=== PATIENT | male | born 1935 | race Caucasian/White ===

== ENCOUNTER 2021-08-31 10:30 | Inpatient (IN) | payer MEDICARE ==
[2021-08-31 11:56] LABS: Hemoglobin 10.2 g/dL (13.5-17.5); Mean Corpuscular HGB CONC 33.6 g/dL (32.0-36.0); Mean Corpuscular Hemoglobin 29.7 pg (27.0-33.0); Mean Corpuscular Volume 88.6 fl (81.2-95.1); Mean Platelet Volume 11.6 fl (7.4-10.4); Platelet Count 178 10x3/uL (150-450); RBC Distribution Width 14.2 % (11.5-14.5); Red Blood Cell (RBC) Count 3.43 10x6/uL (4.32-5.72); White Blood Cell (WBC) Count 5.3 10x3/uL (3.5-10.5)
[2021-08-31 12:00] LABS: Bilirubin Neg (Negative); Blood, Urine Negative (Negative); Clarity Clear (Clear); Glucose, Urine (Dipstick) Normal (Negative); Ketone, Urine 5 mg/dL (Negative); Leukocyte 25 (Negative); Nitrite Negative (Negative); Protein, Urine (Dipstick) 30 mg/dl (Neg-Trace); Urobilinogen Normal mg/dL (Less than 2)
[2021-08-31 12:18] LABS: Renal Epithelial 0-3 HPF (None Seen); Squamous Epithelial None Seen HPF (0-3); WBC/HPF 0-3 HPF (0-3)
[2021-08-31 12:18] LABS: ALT (SGPT) 190 U/L (8-55); AST (SGOT) 371 U/L (5-34); Albumin 2.5 g/dL (3.4-4.8); Alkaline Phosphatase 126 U/L (40-110); Anion Gap 13 mmol/L (10-20); BUN (Urea Nitrogen) 30 mg/dL (8.4-25.7); Bilirubin, Total 0.3 mg/dL (0.2-1.2); CK (CPK) 32 U/L (30-200); Calc. Creatinine Clearance 0 mL/min (70-130); Calcium 7.9 mg/dL (7.8-10.44); Carbon Dioxide 23 mmol/L (23-31); Chloride 105 mmol/L (98-107); Globulin 2.8 g/dL (2.4-3.5); Glucose 71 mg/dL (83-110); Potassium 4.1 mmol/L (3.5-5.1); Protein, Total 5.3 g/dL (5.8-8.1); Sodium 137 mmol/L (136-145)
[2021-08-31 12:19] LABS: Bacteria/HPF None Seen HPF (None Seen); RBC/HPF 0-3 HPF (0-3)
[2021-08-31 12:35] LABS: CKMB 2.5 ng/mL (0-6.6)
[2021-08-31 12:41] LABS: Band 2 % (5-11); Lymphocytes 5 % (21-51); Monocytes 3 % (0-10)
[2021-08-31 12:44] LABS: Platelet Morphology Comment Appears Adequate
[2021-08-31 12:47] LABS: Diff Comment (RBC Morph SCRN) NORMAL
[2021-08-31] MEDS ORDERED: Enoxaparin Sodium 80 MG/0.8 ML SYRINGE ONE (12:48)
[2021-08-31 12:50] LABS: MDiff Complete? YES
[2021-08-31 13:07] LABS: Neutrophil 90 % (42-75)
[2021-08-31 13:08] LABS: RBC Morphology NORMAL
[2021-08-31 14:43] LABS: Troponin I 0.161 ng/mL (< 0.028)
[2021-08-31] MEDS ORDERED: Senokot S 8.6-50 MG TAB PO PRN (14:45)
[2021-08-31] MEDS ORDERED: Bisacodyl 5 MG TAB PO PRN (14:45)
[2021-08-31] MEDS ORDERED: Acetaminophen 650 MG Suppository PR PRN (14:45)
[2021-08-31] MEDS ORDERED: Ondansetron ODT 4 MG TAB PO PRN (14:45)
[2021-08-31] MEDS ORDERED: Ondansetron PF 4 MG/2 ML Vial IVP PRN (14:45)
[2021-08-31 16:03] LABS: Hep B Surf Ag Non-Reactive S/CO (NonReactive)
[2021-08-31 16:22] LABS: HBSAg Index 0.19 S/CO (0-0.99)
[2021-08-31] MEDS ORDERED: HYDROcodone/Acetaminophen 5/325 mg Tablet ONE (16:31)
[2021-08-31 17:48] LABS: Troponin I 0.184 ng/mL (< 0.028)
[2021-08-31 20:24] LABS: HBCM Index 0.09 S/CO (0-0.79); Hep A IgM AB Non-Reactive (NonReactive); Hep A IgM S/CO 0.18 S/CO (0-0.79); Hep C IgG Ab Non-Reactive (NonReactive); Hep C Index 0.26 S/CO (0-0.79); Hepatitis B Core IgM Abs Non-Reactive (NonReactive)
[2021-08-31 21:33] VITALS: BMI 20.6
[2021-08-31] MEDS: Sodium Chloride 0.9% 1,000 ML IV SCH (21:38)
[2021-09-01] MEDS ORDERED: Enoxaparin Sodium 80 MG/0.8 ML SYRINGE SC SCH ×2 (01:00→09:00)
[2021-09-01] MEDS: HYDROcodone/Acetaminophen 5/325 mg Tablet PO PRN ×4 (02:53→20:34)
[2021-09-01 03:55] LABS: #Monocytes 0.1 10x3/uL (0.0-1.1); #Neutrophils 2.2 10x3/uL (1.5-8.4); %Basophils 0.4 % (0.0-2.0); %Lymphocytes 12.7 % (18.0-47.0); %Monocytes 2.7 % (0.0-10.0); %Neutrophils 83.4 % (40.0-75.0); Hemoglobin 10.5 g/dL (13.5-17.5); Mean Corpuscular HGB CONC 33.8 g/dL (32.0-36.0); Mean Corpuscular Hemoglobin 29.7 pg (27.0-33.0); Mean Corpuscular Volume 87.9 fl (81.2-95.1); Mean Platelet Volume 11.9 fl (7.4-10.4); Platelet Count 146 10x3/uL (150-450); RBC Distribution Width 14.3 % (11.5-14.5); Red Blood Cell (RBC) Count 3.54 10x6/uL (4.32-5.72); White Blood Cell (WBC) Count 2.6 10x3/uL (3.5-10.5)
[2021-09-01 04:12] LABS: Anion Gap 13 mmol/L (10-20); BUN (Urea Nitrogen) 27 mg/dL (8.4-25.7); Calc. Creatinine Clearance 51 mL/min (70-130); Calcium 7.8 mg/dL (7.8-10.44); Carbon Dioxide 21 mmol/L (23-31); Chloride 110 mmol/L (98-107); Glucose 81 mg/dL (83-110); Potassium 3.8 mmol/L (3.5-5.1); Sodium 140 mmol/L (136-145)
[2021-09-01] MEDS: Sodium Chloride 0.9% 1,000 ML IV SCH ×3 (06:46→21:56)
[2021-09-01] MEDS ORDERED: Pramipexole Di-HCl 1 MG TAB PO PRN (08:26)
[2021-09-01 08:53] LABS: ALT (SGPT) 417 U/L (8-55); AST (SGOT) 940 U/L (5-34); Albumin 2.3 g/dL (3.4-4.8); Alkaline Phosphatase 135 U/L (40-110); Bilirubin, Direct 0.3 mg/dL (0.1-0.3); Bilirubin, Total 0.3 mg/dL (0.2-1.2)
[2021-09-01] MEDS ORDERED: Torsemide 20 MG TAB PO SCH (09:00)
[2021-09-01] MEDS: NIFEdipine XL 30 MG TAB PO SCH (09:09)
[2021-09-01] MEDS ORDERED: Enoxaparin Sodium 80 MG/0.8 ML SYRINGE ONE (09:10)
[2021-09-01] MEDS: Loratadine 10 MG TAB PO SCH (09:11)
[2021-09-01] MEDS: Multivit, Therapeutic 1 TAB PO SCH (09:11)
[2021-09-01] MEDS: Aspirin 81 mg Enteric Coated Tablet PO SCH (09:11)
[2021-09-01] MEDS: Potassium Chloride 10 MEQ TAB PO SCH (09:11)
[2021-09-01] MEDS: Cholecalciferol 1,000 UNITS (25 MCG) TAB PO SCH (09:30)
[2021-09-01] MEDS ORDERED: Piperacillin/Tazobactam 3.375 GM in Sodium Chloride 0.9% 100 ML IVPB SCH (10:30)
[2021-09-01] MEDS ORDERED: diphenhydrAMINE 50 MG CAP PO SCH (12:15)
[2021-09-01] MEDS: Aluminum & Magnesium Hydroxide 60 ML, diphenhydrAMINE 150 MG, Lidocaine 2% Viscous Solu... SSW SCH ×3 (12:32→20:48)
[2021-09-01] MEDS: Piperacillin/Tazobactam 3.375 GM in Sodium Chloride 0.9% 100 ML IVPB SCH ×2 (15:18→21:56)
[2021-09-01 16:44] LABS: SARS-CoV-2 PCR by NAA Not Detected (NotDetected)
[2021-09-01] MEDS: Apixaban 5 MG TAB PO SCH (20:31)
[2021-09-01] MEDS: Mirtazapine 15 MG TAB PO SCH (20:31)
[2021-09-01] MEDS: Amiodarone 200 MG TAB PO SCH (20:32)
[2021-09-01] MEDS: predniSONE 50 MG TAB PO SCH (20:41)
[2021-09-01] MEDS ORDERED: Rosuvastatin 10 MG TAB PO SCH (21:00)
[2021-09-02] MEDS: predniSONE 50 MG TAB PO SCH (02:10)
[2021-09-02 05:13] LABS: Mean Corpuscular HGB CONC 33.2 g/dL (32.0-36.0); Mean Corpuscular Hemoglobin 29.7 pg (27.0-33.0); Mean Corpuscular Volume 89.3 fl (81.2-95.1); Mean Platelet Volume 11.8 fl (7.4-10.4); Platelet Count 118 10x3/uL (150-450); RBC Distribution Width 14.6 % (11.5-14.5); Red Blood Cell (RBC) Count 3.37 10x6/uL (4.32-5.72); White Blood Cell (WBC) Count 2.5 10x3/uL (3.5-10.5)
[2021-09-02 05:27] LABS: Manual Diff?? YES
[2021-09-02 05:28] LABS: MDiff Complete? YES
[2021-09-02 05:32] LABS: ALT (SGPT) 747 U/L (8-55); AST (SGOT) 1959 U/L (5-34); Albumin 2.1 g/dL (3.4-4.8); Alkaline Phosphatase 152 U/L (40-110); Anion Gap 17 mmol/L (10-20); BUN (Urea Nitrogen) 33 mg/dL (8.4-25.7); Bilirubin, Total 0.4 mg/dL (0.2-1.2); Calc. Creatinine Clearance 40 mL/min (70-130); Calcium 7.3 mg/dL (7.8-10.44); Carbon Dioxide 22 mmol/L (23-31); Chloride 112 mmol/L (98-107); Globulin 2.6 g/dL (2.4-3.5); Glucose 112 mg/dL (83-110); Lipase 100 U/L (8-78); Potassium 4.2 mmol/L (3.5-5.1); Protein, Total 4.7 g/dL (5.8-8.1); Sodium 147 mmol/L (136-145)
[2021-09-02] MEDS: Piperacillin/Tazobactam 3.375 GM in Sodium Chloride 0.9% 100 ML IVPB SCH ×2 (05:45→15:13)
[2021-09-02] MEDS: Sodium Chloride 0.9% 1,000 ML IV SCH (05:46)
[2021-09-02 06:14] LABS: Band 45 % (5-11); Lymphocytes 4 % (21-51); Metamyelocyte 3 % (0-0); Neutrophil 46 % (42-75); Reactive Lymphocytes 2 % (0-10)
[2021-09-02 06:15] LABS: Platelet Morphology Comment Appears Decreased
[2021-09-02 06:16] LABS: Target Cells SLIGHT = 2-5 cells (100X) (0-1/hpf)
[2021-09-02] MEDS ORDERED: diphenhydrAMINE 50 MG CAP PO SCH (08:00)
[2021-09-02] MEDS: Ferrous Sulfate 325 MG TAB PO SCH (09:14)
[2021-09-02] MEDS: Multivit, Therapeutic 1 TAB PO SCH (09:14)
[2021-09-02] MEDS: Cholecalciferol 1,000 UNITS (25 MCG) TAB PO SCH (09:14)
[2021-09-02] MEDS: Pantoprazole 40 MG VIAL IVP SCH (09:15)
[2021-09-02] MEDS: Potassium Chloride 10 MEQ TAB PO SCH (09:15)
[2021-09-02] MEDS: Aluminum & Magnesium Hydroxide 60 ML, diphenhydrAMINE 150 MG, Lidocaine 2% Viscous Solu... SSW SCH ×4 (09:15→21:31)
[2021-09-02] MEDS: Loratadine 10 MG TAB PO SCH (09:15)
[2021-09-02] MEDS: Aspirin 81 mg Enteric Coated Tablet PO SCH (09:15)
[2021-09-02] MEDS: Apixaban 5 MG TAB PO SCH (09:15)
[2021-09-02] MEDS: Amiodarone 200 MG TAB PO SCH (09:35)
[2021-09-02] MEDS: NIFEdipine XL 30 MG TAB PO SCH (09:35)
[2021-09-02] MEDS: Dextrose 5%-Lactated Ringers 1,000 ML IV SCH ×2 (12:34→21:30)
[2021-09-02] MEDS: Nystatin 500,000 UNITS/5 ML UDCUP SSW SCH ×3 (15:13→21:30)
[2021-09-02] MEDS: Mirtazapine 15 MG TAB PO SCH (21:30)
[2021-09-02] MEDS: Enoxaparin Sodium 60 MG/0.6 ML SYRINGE SC SCH (21:30)
[2021-09-02] MEDS: HYDROcodone/Acetaminophen 5/325 mg Tablet PO PRN (21:41)
[2021-09-03] MEDS: Piperacillin/Tazobactam 3.375 GM in Sodium Chloride 0.9% 100 ML IVPB SCH ×3 (00:17→16:01)
[2021-09-03 05:59] LABS: ALT (SGPT) 1138 U/L (8-55); AST (SGOT) 3229 U/L (5-34); Albumin 2.3 g/dL (3.4-4.8); Alkaline Phosphatase 219 U/L (40-110); Anion Gap 15 mmol/L (10-20); BUN (Urea Nitrogen) 36 mg/dL (8.4-25.7); Bilirubin, Total 0.4 mg/dL (0.2-1.2); CRP (Inflammatory) 10.23 mg/dL (= or < 0.5); Calc. Creatinine Clearance 45 mL/min (70-130); Calcium 7.7 mg/dL (7.8-10.44); Carbon Dioxide 22 mmol/L (23-31); Chloride 116 mmol/L (98-107); Globulin 2.7 g/dL (2.4-3.5); Glucose 119 mg/dL (83-110); Magnesium 2.2 mg/dL (1.6-2.6); Phosphorus 3.6 mg/dL (2.3-4.7); Potassium 4.2 mmol/L (3.5-5.1); Sodium 149 mmol/L (136-145)
[2021-09-03 07:02] LABS: Hemoglobin 12.5 g/dL (13.5-17.5); Mean Corpuscular HGB CONC 34.2 g/dL (32.0-36.0); Mean Corpuscular Hemoglobin 29.4 pg (27.0-33.0); Mean Corpuscular Volume 85.9 fl (81.2-95.1); Mean Platelet Volume 12.6 fl (7.4-10.4); RBC Distribution Width 14.6 % (11.5-14.5); Red Blood Cell (RBC) Count 4.25 10x6/uL (4.32-5.72); White Blood Cell (WBC) Count 4.3 10x3/uL (3.5-10.5)
[2021-09-03 07:03] LABS: MDiff Complete? YES; Platelet Count 116 10x3/uL (150-450)
[2021-09-03] MEDS: Aluminum & Magnesium Hydroxide 60 ML, diphenhydrAMINE 150 MG, Lidocaine 2% Viscous Solu... SSW SCH ×4 (07:14→20:16)
[2021-09-03 07:33] LABS: Band 8 % (5-11); Lymphocytes 7 % (21-51); Monocytes 3 % (0-10); Neutrophil 81 % (42-75); Platelet Morphology Comment Appears Decreased; Reactive Lymphocytes 1 % (0-10)
[2021-09-03] MEDS: Pantoprazole 40 MG VIAL IVP SCH (10:21)
[2021-09-03] MEDS: Ferrous Sulfate 325 MG TAB PO SCH (10:21)
[2021-09-03] MEDS: Cholecalciferol 1,000 UNITS (25 MCG) TAB PO SCH (10:21)
[2021-09-03] MEDS: Enoxaparin Sodium 60 MG/0.6 ML SYRINGE SC SCH (10:21)
[2021-09-03] MEDS: Multivit, Therapeutic 1 TAB PO SCH (10:21)
[2021-09-03] MEDS: Nystatin 500,000 UNITS/5 ML UDCUP SSW SCH ×4 (10:21→20:13)
[2021-09-03] MEDS: Potassium Chloride 10 MEQ TAB PO SCH (10:21)
[2021-09-03] MEDS: Loratadine 10 MG TAB PO SCH (10:22)
[2021-09-03] MEDS: Aspirin 81 mg Enteric Coated Tablet PO SCH (10:22)
[2021-09-03] MEDS: Albumin 25% 25 GM/100 ML BOT IVPB SCH ×3 (12:24→22:58)
[2021-09-03] MEDS: D5W-AA 4.25% with LYTES 1,000 ML IV SCH (14:32)
[2021-09-03] MEDS: Dextrose 5%-Lactated Ringers 1,000 ML IV SCH (15:10)
[2021-09-03] MEDS: HYDROcodone/Acetaminophen 5/325 mg Tablet PO PRN (18:37)
[2021-09-03] MEDS ORDERED: predniSONE 50 MG TAB PO SCH (20:00)
[2021-09-03] MEDS: Melatonin 3 MG TAB PO SCH (20:14)
[2021-09-03] MEDS: Mirtazapine 15 MG TAB PO SCH (20:14)
[2021-09-03] MEDS: SODIUM CHLORIDE IVPB SCH (20:14)
[2021-09-03] MEDS: ACYCLOVIR SODIUM IVPB SCH (20:14)
[2021-09-03] MEDS: Enoxaparin Sodium 80 MG/0.8 ML SYRINGE SC SCH (20:14)
[2021-09-03] MEDS: ADMIXTURE FEE IVPB SCH (20:14)
[2021-09-04] MEDS: Piperacillin/Tazobactam 3.375 GM in Sodium Chloride 0.9% 100 ML IVPB SCH ×3 (00:03→12:15)
[2021-09-04] MEDS: HYDROcodone/Acetaminophen 5/325 mg Tablet PO PRN ×5 (00:45→23:32)
[2021-09-04] MEDS: D5W-AA 4.25% with LYTES 1,000 ML IV SCH ×2 (01:54→15:40)
[2021-09-04] MEDS ORDERED: predniSONE 50 MG TAB PO SCH ×2 (02:00→08:00)
[2021-09-04] MEDS: Albumin 25% 25 GM/100 ML BOT IVPB SCH (04:58)
[2021-09-04 05:03] LABS: Mean Corpuscular HGB CONC 33.4 g/dL (32.0-36.0); Mean Corpuscular Hemoglobin 29.1 pg (27.0-33.0); Mean Corpuscular Volume 87.1 fl (81.2-95.1); Platelet Count 78 10x3/uL (150-450); RBC Distribution Width 14.5 % (11.5-14.5); Red Blood Cell (RBC) Count 4.12 10x6/uL (4.32-5.72); White Blood Cell (WBC) Count 3.1 10x3/uL (3.5-10.5)
[2021-09-04 05:17] LABS: ALT (SGPT) 1080 U/L (8-55); AST (SGOT) 3240 U/L (5-34); Albumin 3.1 g/dL (3.4-4.8); Alkaline Phosphatase 210 U/L (40-110); Anion Gap 15 mmol/L (10-20); BUN (Urea Nitrogen) 35 mg/dL (8.4-25.7); Bilirubin, Total 0.5 mg/dL (0.2-1.2); Calc. Creatinine Clearance 49 mL/min (70-130); Calcium 8.1 mg/dL (7.8-10.44); Carbon Dioxide 21 mmol/L (23-31); Chloride 113 mmol/L (98-107); Globulin 2.5 g/dL (2.4-3.5); Glucose 150 mg/dL (83-110); Potassium 4.4 mmol/L (3.5-5.1); Protein, Total 5.6 g/dL (5.8-8.1); Sodium 145 mmol/L (136-145)
[2021-09-04 05:20] LABS: INR-International Normal Ratio 1.5
[2021-09-04 05:51] LABS: MDiff Complete? YES
[2021-09-04 05:57] LABS: Anisocytosis SLIGHT = 6-15 cells (100X) (0-5/hpf)
[2021-09-04 05:58] LABS: Platelet Morphology Comment Appears Decreased; Target Cells SLIGHT = 2-5 cells (100X) (0-1/hpf)
[2021-09-04 06:00] LABS: Band 11 % (5-11); Lymphocytes 11 % (21-51); Metamyelocyte 2 % (0-0); Monocytes 2 % (0-10); Neutrophil 69 % (42-75); Nucleated RBC 2 % (0); Reactive Lymphocytes 5 % (0-10)
[2021-09-04] MEDS: Aluminum & Magnesium Hydroxide 60 ML, diphenhydrAMINE 150 MG, Lidocaine 2% Viscous Solu... SSW SCH ×4 (07:12→20:26)
[2021-09-04] MEDS ORDERED: diphenhydrAMINE 50 MG CAP PO SCH (08:00)
[2021-09-04] MEDS: Loratadine 10 MG TAB PO SCH (08:19)
[2021-09-04] MEDS: Potassium Chloride 10 MEQ TAB PO SCH (08:20)
[2021-09-04] MEDS: Aspirin 81 mg Enteric Coated Tablet PO SCH (08:23)
[2021-09-04] MEDS: Ferrous Sulfate 325 MG TAB PO SCH (08:23)
[2021-09-04] MEDS: Multivit, Therapeutic 1 TAB PO SCH (08:24)
[2021-09-04] MEDS: Cholecalciferol 1,000 UNITS (25 MCG) TAB PO SCH (08:24)
[2021-09-04] MEDS: Nystatin 500,000 UNITS/5 ML UDCUP SSW SCH ×4 (08:25→20:29)
[2021-09-04] MEDS: Enoxaparin Sodium 80 MG/0.8 ML SYRINGE SC SCH ×2 (08:26→20:25)
[2021-09-04] MEDS: Pantoprazole 40 MG VIAL IVP SCH (08:26)
[2021-09-04] MEDS: SODIUM CHLORIDE IVPB SCH ×2 (08:29→19:56)
[2021-09-04] MEDS: ADMIXTURE FEE IVPB SCH ×2 (08:29→19:56)
[2021-09-04] MEDS: ACYCLOVIR SODIUM IVPB SCH ×2 (08:29→19:56)
[2021-09-04] MEDS ORDERED: NIFEdipine XL 90 MG TAB PO SCH (11:00)
[2021-09-04] MEDS ORDERED: NIFEdipine XL 30 MG TAB PO SCH (11:45)
[2021-09-04] MEDS: Acetaminophen 325 MG TAB PO PRN ×3 (12:15→19:55)
[2021-09-04] MEDS ORDERED: Iopamidol 300 61% 100 ML VIAL FS ONE (14:52)
[2021-09-04] MEDS: Mirtazapine 15 MG TAB PO SCH (20:25)
[2021-09-04] MEDS: Melatonin 3 MG TAB PO SCH (20:25)
[2021-09-05] MEDS: Acetaminophen 325 MG TAB PO PRN (02:52)
[2021-09-05] MEDS: HYDROcodone/Acetaminophen 5/325 mg Tablet PO PRN ×3 (03:52→13:07)
[2021-09-05] MEDS: D5W-AA 4.25% with LYTES 1,000 ML IV SCH ×2 (03:59→18:20)
[2021-09-05 04:36] LABS: Hemoglobin 11.1 g/dL (13.5-17.5); Mean Corpuscular HGB CONC 34.2 g/dL (32.0-36.0); Mean Corpuscular Hemoglobin 29.5 pg (27.0-33.0); Mean Corpuscular Volume 86.4 fl (81.2-95.1); Mean Platelet Volume 13.4 fl (7.4-10.4); Platelet Count 65 10x3/uL (150-450); RBC Distribution Width 14.6 % (11.5-14.5); Red Blood Cell (RBC) Count 3.76 10x6/uL (4.32-5.72); White Blood Cell (WBC) Count 5.1 10x3/uL (3.5-10.5)
[2021-09-05 04:40] LABS: ALT (SGPT) 869 U/L (8-55); AST (SGOT) 2476 U/L (5-34); Albumin 2.7 g/dL (3.4-4.8); Alkaline Phosphatase 226 U/L (40-110); Anion Gap 15 mmol/L (10-20); BUN (Urea Nitrogen) 53 mg/dL (8.4-25.7); Bilirubin, Total 0.5 mg/dL (0.2-1.2); Calc. Creatinine Clearance 41 mL/min (70-130); Calcium 7.8 mg/dL (7.8-10.44); Carbon Dioxide 20 mmol/L (23-31); Chloride 112 mmol/L (98-107); Globulin 2.1 g/dL (2.4-3.5); Glucose 157 mg/dL (83-110); Potassium 4.7 mmol/L (3.5-5.1); Protein, Total 4.8 g/dL (5.8-8.1); Sodium 142 mmol/L (136-145)
[2021-09-05 04:42] LABS: INR-International Normal Ratio 1.4; Prothrombin Time 14.6 sec (9.5-12.1)
[2021-09-05 06:18] LABS: MDiff Complete? YES
[2021-09-05 06:43] LABS: Anisocytosis SLIGHT = 6-15 cells (100X) (0-5/hpf); Platelet Morphology Comment Appears Decreased
[2021-09-05 06:44] LABS: Band 15 % (5-11); Lymphocytes 13 % (21-51); Metamyelocyte 1 % (0-0); Monocytes 2 % (0-10); Neutrophil 63 % (42-75); Reactive Lymphocytes 6 % (0-10)
[2021-09-05] MEDS ORDERED: diphenhydrAMINE 12.5 MG/5 ML UDCUP ONE ×2 (07:52→18:22)
[2021-09-05] MEDS ORDERED: Nystatin 500,000 UNITS/5 ML UDCUP ONE ×2 (07:52→18:22)
[2021-09-05] MEDS: Cholecalciferol 1,000 UNITS (25 MCG) TAB PO SCH (08:25)
[2021-09-05] MEDS: Aspirin 81 mg Enteric Coated Tablet PO SCH (08:25)
[2021-09-05] MEDS: Enoxaparin Sodium 80 MG/0.8 ML SYRINGE SC SCH (08:25)
[2021-09-05] MEDS: Loratadine 10 MG TAB PO SCH (08:26)
[2021-09-05] MEDS: Ferrous Sulfate 325 MG TAB PO SCH (08:26)
[2021-09-05] MEDS: Potassium Chloride 10 MEQ TAB PO SCH (08:26)
[2021-09-05] MEDS: Pantoprazole 40 MG VIAL IVP SCH (08:27)
[2021-09-05] MEDS: Multivit, Therapeutic 1 TAB PO SCH (08:27)
[2021-09-05] MEDS: Aluminum & Magnesium Hydroxide 60 ML, diphenhydrAMINE 150 MG, Lidocaine 2% Viscous Solu... SSW SCH ×3 (08:52→18:31)
[2021-09-05] MEDS ORDERED: NIFEdipine XL 90 MG TAB PO SCH (09:00)
[2021-09-05] MEDS: Nystatin 500,000 UNITS/5 ML UDCUP SSW SCH ×4 (09:00→21:00)
[2021-09-05] MEDS: SODIUM CHLORIDE IVPB SCH ×2 (10:22→22:34)
[2021-09-05] MEDS: ACYCLOVIR SODIUM IVPB SCH ×2 (10:22→22:34)
[2021-09-05] MEDS: ADMIXTURE FEE IVPB SCH ×2 (10:22→22:34)
[2021-09-05 19:55] LABS: Bilirubin Neg (Negative); Blood, Urine 50 (Negative); Clarity Clear (Clear); Glucose, Urine (Dipstick) Normal (Negative); Ketone, Urine Negative (Negative); Leukocyte 100 (Negative); Nitrite Negative (Negative); Protein, Urine (Dipstick) 100 mg/dl (Neg-Trace); Specific Gravity, Urine 1.015 (1.002-1.036); Urobilinogen Normal mg/dL (Less than 2)
[2021-09-05 20:18] LABS: Bacteria/HPF Rare-Few HPF (None Seen); RBC/HPF 0-3 HPF (0-3); Squamous Epithelial 0-3 HPF (0-3); Urine Culture Reflex No No; WBC/HPF 0-3 HPF (0-3); Yeast-Budding 3+ HPF (None Seen); Yeast-Hyphae 2+ HPF (None Seen)
[2021-09-05] MEDS ORDERED: Ampicillin 2 GM in Sodium Chloride 0.9% 100 ML IVPB SCH ×2 (21:00→23:59)
[2021-09-05] MEDS ORDERED: cefTRIAXone\\ROCEPHIN 2 GM in Sodium Chloride 0.9% 100 ML IVPB SCH ×2 (21:00→22:00)
[2021-09-05] MEDS ORDERED: Dexamethasone 20 MG/5 ML VIAL SLOW IVP SCH (21:15)
[2021-09-05 21:53] LABS: Hemoglobin 10.9 g/dL (13.5-17.5); Mean Corpuscular HGB CONC 33.6 g/dL (32.0-36.0); Mean Corpuscular Hemoglobin 28.9 pg (27.0-33.0); Mean Corpuscular Volume 85.9 fl (81.2-95.1); Platelet Count 74 10x3/uL (150-450); RBC Distribution Width 14.6 % (11.5-14.5); Red Blood Cell (RBC) Count 3.77 10x6/uL (4.32-5.72); White Blood Cell (WBC) Count 5.7 10x3/uL (3.5-10.5)
[2021-09-05 21:55] LABS: MDiff Complete? YES
[2021-09-05 22:04] LABS: ALT (SGPT) 732 U/L (8-55); AST (SGOT) 1742 U/L (5-34); Albumin 2.8 g/dL (3.4-4.8); Alkaline Phosphatase 248 U/L (40-110); Anion Gap 16 mmol/L (10-20); BUN (Urea Nitrogen) 69 mg/dL (8.4-25.7); Bilirubin, Total 0.6 mg/dL (0.2-1.2); Calc. Creatinine Clearance 31 mL/min (70-130); Calcium 8.1 mg/dL (7.8-10.44); Carbon Dioxide 20 mmol/L (23-31); Chloride 110 mmol/L (98-107); Globulin 2.3 g/dL (2.4-3.5); Glucose 119 mg/dL (83-110); Protein, Total 5.1 g/dL (5.8-8.1); Sodium 141 mmol/L (136-145)
[2021-09-05 22:13] LABS: Platelet Morphology Comment Appears Decreased
[2021-09-05 22:14] LABS: Anisocytosis SLIGHT = 6-15 cells (100X) (0-5/hpf)
[2021-09-05 22:16] LABS: Band 6 % (5-11); Lymphocytes 10 % (21-51); Metamyelocyte 1 % (0-0); Monocytes 2 % (0-10); Neutrophil 79 % (42-75); Reactive Lymphocytes 2 % (0-10)
[2021-09-05 22:24] LABS: Actual Bicarbonate (HCO3v) 21 mEq/L (22-28); Base Excess -3.2 mEq/L (-2.0 to +3.0); Calcium, Ionized (venous) 1.09 mmol/L (1.16-1.32); Chloride (VBG) 110 mmol/L (98-106); Hemoglobin (Hb) 11.4 g/dL (12.6-17.4); Potassium (VBG) 4.79 mmol/L (3.70-5.30); Puncture Site Other Site; RapidComm Collect By LAB.YY; Sodium 137.9 mmol/L (133-146); pH (venous) 7.42 (7.32-7.43)
[2021-09-05] MEDS ORDERED: Vancomycin HCl 1 GM in Sodium Chloride 0.9% 250 ML 250 ML IVPB SCH (23:00)
[2021-09-06 00:32] LABS: Lactic Acid 2.1 mmol/L (0.5-2.2)
[2021-09-06] MEDS: Dextrose 5 %-0.45 % NaCl 1,000 ML IV SCH ×2 (00:41→12:28)
[2021-09-06] MEDS: Melatonin 3 MG TAB PO SCH (01:31)
[2021-09-06] MEDS: Mirtazapine 15 MG TAB PO SCH (01:31)
[2021-09-06] MEDS: Aluminum & Magnesium Hydroxide 60 ML, diphenhydrAMINE 150 MG, Lidocaine 2% Viscous Solu... SSW SCH ×5 (01:32→20:57)
[2021-09-06] MEDS ORDERED: Ampicillin 2 GM in Sodium Chloride 0.9% 100 ML IVPB SCH (03:00)
[2021-09-06 04:27] LABS: INR-International Normal Ratio 1.3; Prothrombin Time 13.5 sec (9.5-12.1)
[2021-09-06 04:37] LABS: ALT (SGPT) 633 U/L (8-55); AST (SGOT) 1385 U/L (5-34); Albumin 2.6 g/dL (3.4-4.8); Alkaline Phosphatase 258 U/L (40-110); Anion Gap 16 mmol/L (10-20); BUN (Urea Nitrogen) 66 mg/dL (8.4-25.7); Bilirubin, Total 0.6 mg/dL (0.2-1.2); Calc. Creatinine Clearance 32 mL/min (70-130); Calcium 7.8 mg/dL (7.8-10.44); Carbon Dioxide 20 mmol/L (23-31); Chloride 111 mmol/L (98-107); Globulin 2.6 g/dL (2.4-3.5); Glucose 116 mg/dL (83-110); Potassium 4.5 mmol/L (3.5-5.1); Protein, Total 5.2 g/dL (5.8-8.1); Sodium 142 mmol/L (136-145)
[2021-09-06 04:45] LABS: Mean Corpuscular HGB CONC 34.5 g/dL (32.0-36.0); Mean Corpuscular Volume 84.2 fl (81.2-95.1); Mean Platelet Volume 12.6 fl (7.4-10.4); Platelet Count 70 10x3/uL (150-450); RBC Distribution Width 14.6 % (11.5-14.5); Red Blood Cell (RBC) Count 3.79 10x6/uL (4.32-5.72); White Blood Cell (WBC) Count 5.7 10x3/uL (3.5-10.5)
[2021-09-06 04:49] LABS: Syphilis Antibody Nonreactive (Nonreactive)
[2021-09-06 07:09] LABS: MDiff Complete? YES
[2021-09-06 07:14] LABS: Band 5 % (5-11); Lymphocytes 10 % (21-51); Monocytes 3 % (0-10); Neutrophil 82 % (42-75)
[2021-09-06 07:17] LABS: Anisocytosis SLIGHT = 6-15 cells (100X) (0-5/hpf); Platelet Morphology Comment Appears Decreased; Toxic Granulation SLIGHT
[2021-09-06] MEDS ORDERED: Vancomycin HCl 500 MG in Sodium Chloride 0.9% 100 ML IVPB SCH (08:00)
[2021-09-06] MEDS ORDERED: Vancomycin HCl 1 GM in Sodium Chloride 0.9% 250 ML 250 ML IVPB SCH ×2 (08:00→21:00)
[2021-09-06] MEDS: SODIUM CHLORIDE IVPB SCH (08:49)
[2021-09-06] MEDS: ACYCLOVIR SODIUM IVPB SCH (08:49)
[2021-09-06] MEDS: ADMIXTURE FEE IVPB SCH (08:49)
[2021-09-06] MEDS: Ampicillin 2 GM in Sodium Chloride 0.9% 100 ML IVPB SCH ×2 (08:50→14:02)
[2021-09-06] MEDS: Albumin 25% 25 GM/100 ML BOT IVPB SCH ×3 (08:50→21:05)
[2021-09-06] MEDS: Multivit, Therapeutic 1 TAB PO SCH (08:51)
[2021-09-06] MEDS: Cholecalciferol 1,000 UNITS (25 MCG) TAB PO SCH (08:51)
[2021-09-06] MEDS: Ferrous Sulfate 325 MG TAB PO SCH (08:51)
[2021-09-06] MEDS: Aspirin 81 mg Enteric Coated Tablet PO SCH (08:51)
[2021-09-06] MEDS: Nystatin 500,000 UNITS/5 ML UDCUP SSW SCH ×4 (09:09→20:56)
[2021-09-06] MEDS: Pantoprazole 40 MG VIAL IVP SCH (09:14)
[2021-09-06] MEDS ORDERED: HYDROcodone/Acetaminophen 7.5/325 mg Tablet PO PRN (18:30)
[2021-09-06] MEDS: HYDROmorphone 0.5 MG/0.5 ML SYRINGE SLOW IVP PRN ×2 (18:56→22:58)
[2021-09-06] MEDS ORDERED: cefTRIAXone\\ROCEPHIN 2 GM in Sodium Chloride 0.9% 100 ML IVPB SCH (22:00)
[2021-09-07] MEDS: Dextrose 5 %-0.45 % NaCl 1,000 ML IV SCH ×2 (02:35→07:51)
[2021-09-07 04:46] LABS: ALT (SGPT) 398 U/L (8-55); AST (SGOT) 741 U/L (5-34); Albumin 3.1 g/dL (3.4-4.8); Alkaline Phosphatase 269 U/L (40-110); Anion Gap 17 mmol/L (10-20); BUN (Urea Nitrogen) 56 mg/dL (8.4-25.7); Bilirubin, Total 0.8 mg/dL (0.2-1.2); Calc. Creatinine Clearance 34 mL/min (70-130); Calcium 8.1 mg/dL (7.8-10.44); Carbon Dioxide 19 mmol/L (23-31); Chloride 115 mmol/L (98-107); Glucose 96 mg/dL (83-110); Potassium 4.5 mmol/L (3.5-5.1); Protein, Total 5.1 g/dL (5.8-8.1); Sodium 146 mmol/L (136-145)
[2021-09-07 05:02] LABS: HIV (1/2) Antibody/Antigen Non-Reactive (NonReactive); HIV 1/2 INDEX 0.15 S/CO (<1.00)
[2021-09-07 05:05] LABS: Hemoglobin 7.4 g/dL (13.5-17.5); Mean Corpuscular HGB CONC 33.8 g/dL (32.0-36.0); Mean Corpuscular Hemoglobin 29.7 pg (27.0-33.0); Mean Platelet Volume 14.1 fl (7.4-10.4); RBC Distribution Width 14.9 % (11.5-14.5); Red Blood Cell (RBC) Count 2.49 10x6/uL (4.32-5.72); White Blood Cell (WBC) Count 5.5 10x3/uL (3.5-10.5)
[2021-09-07 05:08] LABS: Platelet Count 93 10x3/uL (150-450)
[2021-09-07 05:33] LABS: MDiff Complete? YES
[2021-09-07] MEDS: HYDROmorphone 0.5 MG/0.5 ML SYRINGE SLOW IVP PRN ×5 (05:40→21:44)
[2021-09-07 05:45] LABS: Band 2 % (5-11); Eosinophils 1 % (0-10); Lymphocytes 12 % (21-51); Metamyelocyte 1 % (0-0); Monocytes 2 % (0-10); Neutrophil 81 % (42-75); Nucleated RBC 2 % (0); Reactive Lymphocytes 1 % (0-10)
[2021-09-07 05:46] LABS: Platelet Morphology Comment Appears Decreased; Polychromasia SLIGHT = 2-3 cells (100X) (0-2/hpf); Vacuoles SLIGHT
[2021-09-07 06:47] LABS: Hemoglobin 6.9 g/dL (13.5-17.5); Mean Corpuscular HGB CONC 33.8 g/dL (32.0-36.0); Mean Corpuscular Hemoglobin 29.4 pg (27.0-33.0); Mean Corpuscular Volume 86.8 fl (81.2-95.1); Mean Platelet Volume 14.5 fl (7.4-10.4); RBC Distribution Width 14.9 % (11.5-14.5); Red Blood Cell (RBC) Count 2.35 10x6/uL (4.32-5.72); White Blood Cell (WBC) Count 6.2 10x3/uL (3.5-10.5)
[2021-09-07 06:48] LABS: Platelet Count 98 10x3/uL (150-450)
[2021-09-07 06:58] LABS: MDiff Complete? YES
[2021-09-07 07:10] LABS: Band 5 % (5-11); Lymphocytes 14 % (21-51); Monocytes 4 % (0-10); Myelocyte 1 % (0-0); Neutrophil 75 % (42-75); Nucleated RBC 4 % (0); Reactive Lymphocytes 1 % (0-10)
[2021-09-07 07:11] LABS: Platelet Morphology Comment Appears Decreased; RBC Morphology Normal
[2021-09-07] MEDS: Pantoprazole 40 MG VIAL IVP SCH ×2 (07:50→21:43)
[2021-09-07] MEDS: Aluminum & Magnesium Hydroxide 60 ML, diphenhydrAMINE 150 MG, Lidocaine 2% Viscous Solu... SSW SCH ×4 (08:13→21:14)
[2021-09-07] MEDS: Ferrous Sulfate 325 MG TAB PO SCH (08:14)
[2021-09-07] MEDS: Multivit, Therapeutic 1 TAB PO SCH (08:14)
[2021-09-07] MEDS: Cholecalciferol 1,000 UNITS (25 MCG) TAB PO SCH (08:14)
[2021-09-07] MEDS: Nystatin 500,000 UNITS/5 ML UDCUP SSW SCH ×4 (08:14→21:14)
[2021-09-07] MEDS ORDERED: Dextrose 50% Abboject 50 ML SYRINGE ONE (09:10)
[2021-09-07] MEDS ORDERED: Dextrose 5% in Water 1,000 ML IV PRN (09:12)
[2021-09-07] MEDS ORDERED: Dextrose 50% Abboject 50 ML SYRINGE SLOW IVP PRN (09:12)
[2021-09-07] MEDS ORDERED: Dextrose 10% in Water 1,000 ML IV SCH (09:15)
[2021-09-07] MEDS: Dextrose 10% in Water 1,000 ML IV SCH ×2 (12:19→22:05)
[2021-09-07 13:17] LABS: Hemoglobin 7.7 g/dL (13.5-17.5); Platelet Count 65 10x3/uL (150-450)
[2021-09-07 13:23] LABS: INR-International Normal Ratio 1.6; PTT 49.4 sec (22.0-33.0); Prothrombin Time 16.6 sec (9.5-12.1)
[2021-09-07] MEDS: Cefepime 1 GM in Sodium Chloride 0.9% 100 ML IVPB SCH (13:26)
[2021-09-07] MEDS: Acyclovir Sodium 750 MG in Sodium Chloride 0.9% 100 ML IVPB SCH (13:49)
[2021-09-07 16:37] LABS: Hemoglobin 7.3 g/dL (13.5-17.5)
[2021-09-07 20:56] LABS: Bilirubin Neg (Negative); Blood, Urine 250 (Negative); Clarity Clear (Clear); Glucose, Urine (Dipstick) Normal (Negative); Ketone, Urine Negative (Negative); Leukocyte 100 (Negative); Nitrite Negative (Negative); Protein, Urine (Dipstick) 100 mg/dl (Neg-Trace); Specific Gravity, Urine 1.015 (1.002-1.036); Urobilinogen Normal mg/dL (Less than 2)
[2021-09-07 21:04] LABS: Squamous Epithelial 0-3 HPF (0-3)
[2021-09-07 21:05] LABS: Bacteria/HPF 2+ HPF (None Seen); Mucous/LPF 1+ LPF (<2+); Transitional Epithelial 0-3 HPF (None Seen); Yeast-Budding 1+ HPF (None Seen); Yeast-Hyphae 2+ HPF (None Seen)
[2021-09-08 00:37] LABS: HSV-2 IgG Type Specific Less than 0.91 index (0.00-0.90)
[2021-09-08 01:07] LABS: Hemoglobin 7.9 g/dL (13.5-17.5); Platelet Count 185 10x3/uL (150-450)
[2021-09-08] MEDS: Cefepime 1 GM in Sodium Chloride 0.9% 100 ML IVPB SCH ×2 (01:11→12:34)
[2021-09-08] MEDS: Acyclovir Sodium 750 MG in Sodium Chloride 0.9% 100 ML IVPB SCH ×2 (02:14→14:16)
[2021-09-08 04:34] LABS: Hemoglobin 7.2 g/dL (13.5-17.5); Mean Corpuscular HGB CONC 35.3 g/dL (32.0-36.0); Mean Corpuscular Hemoglobin 29.3 pg (27.0-33.0); Mean Corpuscular Volume 82.9 fl (81.2-95.1); Mean Platelet Volume 12.3 fl (7.4-10.4); Platelet Count 157 10x3/uL (150-450); RBC Distribution Width 15.9 % (11.5-14.5); Red Blood Cell (RBC) Count 2.46 10x6/uL (4.32-5.72); White Blood Cell (WBC) Count 7.2 10x3/uL (3.5-10.5)
[2021-09-08 04:39] LABS: Anion Gap 16 mmol/L (10-20); BUN (Urea Nitrogen) 59 mg/dL (8.4-25.7); Calc. Creatinine Clearance 32 mL/min (70-130); Calcium 7.5 mg/dL (7.8-10.44); Carbon Dioxide 18 mmol/L (23-31); Chloride 115 mmol/L (98-107); Glucose 134 mg/dL (83-110); Magnesium 2.5 mg/dL (1.6-2.6); Potassium 3.9 mmol/L (3.5-5.1); Sodium 145 mmol/L (136-145)
[2021-09-08 04:51] LABS: MDiff Complete? YES
[2021-09-08 04:55] LABS: Band 3 % (5-11); Lymphocytes 7 % (21-51); Monocytes 2 % (0-10); Neutrophil 88 % (42-75); Nucleated RBC 7 % (0)
[2021-09-08 04:56] LABS: Platelet Morphology Comment Appears Adequate; Polychromasia SLIGHT = 2-3 cells (100X) (0-2/hpf)
[2021-09-08 04:58] LABS: Reflex for Review?? YES
[2021-09-08] MEDS ORDERED: Phytonadione 10 MG in Sodium Chloride 0.9% 50 ML SLOW IVP SCH (08:00)
[2021-09-08] MEDS ORDERED: Tranexamic Acid 1,000 MG/10 ML VIAL IVP SCH (08:00)
[2021-09-08] MEDS ORDERED: Tranexamic Acid 1,000 MG in Sodium Chloride 0.9% 250 ML 250 ML IVPB SCH ×3 (08:00)
[2021-09-08] MEDS ORDERED: Phytonadione 10 MG in Sodium Chloride 0.9% 50 ML IVPB SCH (08:00)
[2021-09-08] MEDS ORDERED: Tranexamic Acid 1,000 MG in Sodium Chloride 0.9% 250 ML 250 ML IVP SCH (08:00)
[2021-09-08] MEDS: Pantoprazole 40 MG VIAL IVP SCH ×2 (08:10→22:04)
[2021-09-08] MEDS: Aluminum & Magnesium Hydroxide 60 ML, diphenhydrAMINE 150 MG, Lidocaine 2% Viscous Solu... SSW SCH ×4 (08:10→22:30)
[2021-09-08] MEDS: Ferrous Sulfate 325 MG TAB PO SCH (08:10)
[2021-09-08] MEDS ORDERED: Phytonadione 10 MG/ML AMP SLOW IVP SCH (08:15)
[2021-09-08] MEDS: Dextrose 10% in Water 1,000 ML IV SCH ×2 (08:34→19:33)
[2021-09-08] MEDS: HYDROmorphone 0.5 MG/0.5 ML SYRINGE SLOW IVP PRN ×4 (08:35→22:00)
[2021-09-08] MEDS: Nystatin 500,000 UNITS/5 ML UDCUP SSW SCH ×4 (08:42→22:30)
[2021-09-08] MEDS: Multivit, Therapeutic 1 TAB PO SCH (08:42)
[2021-09-08] MEDS: Cholecalciferol 1,000 UNITS (25 MCG) TAB PO SCH (08:42)
[2021-09-08 08:43] LABS: ALT (SGPT) 328 U/L (8-55); AST (SGOT) 636 U/L (5-34); Albumin 2.6 g/dL (3.4-4.8); Alkaline Phosphatase 201 U/L (40-110); Bilirubin, Direct 0.6 mg/dL (0.1-0.3); Bilirubin, Total 0.9 mg/dL (0.2-1.2); Protein, Total 4.4 g/dL (5.8-8.1)
[2021-09-08] MEDS ORDERED: Hydrocortisone Sod Succ/PF 250 mg/2 ml Vial SLOW IVP SCH ×2 (12:00→17:00)
[2021-09-08 13:59] LABS: Platelet Count 151 10x3/uL (150-450)
[2021-09-08 14:16] LABS: INR-International Normal Ratio 1.2; PTT 41.2 sec (22.0-33.0)
[2021-09-08] MEDS ORDERED: Cosyntropin 250 MCG VIAL SLOW IVP SCH (15:30)
[2021-09-08 16:11] LABS: SARS-CoV-2 PCR by NAA Not Detected (NotDetected)
[2021-09-08] MEDS ORDERED: diphenhydrAMINE 50 MG in Sodium Chloride 0.9% 50 ML IVPB SCH (17:00)
[2021-09-08] MEDS ORDERED: Famotidine/PF 20 mg/2ml Vial SLOW IVP SCH (17:00)
[2021-09-08 18:47] VITALS: BP 143/82; TEMP 99
[2021-09-09] MEDS: Cefepime 1 GM in Sodium Chloride 0.9% 100 ML IVPB SCH (01:10)
[2021-09-09] MEDS: HYDROmorphone 0.5 MG/0.5 ML SYRINGE SLOW IVP PRN ×5 (02:07→19:20)
[2021-09-09] MEDS: Acyclovir Sodium 750 MG in Sodium Chloride 0.9% 100 ML IVPB SCH (04:08)
[2021-09-09 04:26] LABS: Hemoglobin 7.7 g/dL (13.5-17.5); Mean Corpuscular HGB CONC 35.5 g/dL (32.0-36.0); Mean Corpuscular Hemoglobin 29.6 pg (27.0-33.0); Mean Corpuscular Volume 83.5 fl (81.2-95.1); Mean Platelet Volume 12.4 fl (7.4-10.4); Platelet Count 155 10x3/uL (150-450); RBC Distribution Width 15.8 % (11.5-14.5); White Blood Cell (WBC) Count 5.9 10x3/uL (3.5-10.5)
[2021-09-09 04:33] LABS: MDiff Complete? YES
[2021-09-09 04:38] LABS: Band 1 % (5-11); Lymphocytes 9 % (21-51); Metamyelocyte 1 % (0-0); Neutrophil 89 % (42-75); Nucleated RBC 4 % (0)
[2021-09-09 04:39] LABS: Large Platelets SLIGHT; Platelet Morphology Comment Appears Adequate; Polychromasia SLIGHT = 2-3 cells (100X) (0-2/hpf)
[2021-09-09 04:40] LABS: INR-International Normal Ratio 1.2; PTT 42.9 sec (22.0-33.0)
[2021-09-09 04:45] LABS: ALT (SGPT) 277 U/L (8-55); AST (SGOT) 460 U/L (5-34); Albumin 2.5 g/dL (3.4-4.8); Alkaline Phosphatase 220 U/L (40-110); Anion Gap 13 mmol/L (10-20); BUN (Urea Nitrogen) 42 mg/dL (8.4-25.7); Bilirubin, Total 0.9 mg/dL (0.2-1.2); Calc. Creatinine Clearance 44 mL/min (70-130); Calcium 7.5 mg/dL (7.8-10.44); Carbon Dioxide 21 mmol/L (23-31); Chloride 114 mmol/L (98-107); Globulin 2.1 g/dL (2.4-3.5); Glucose 157 mg/dL (83-110); Magnesium 2.4 mg/dL (1.6-2.6); Potassium 3.7 mmol/L (3.5-5.1); Protein, Total 4.6 g/dL (5.8-8.1); Sodium 144 mmol/L (136-145)
[2021-09-09] MEDS: Dextrose 10% in Water 1,000 ML IV SCH (05:30)
[2021-09-09] MEDS: Ferrous Sulfate 325 MG TAB PO SCH (08:13)
[2021-09-09] MEDS: Aluminum & Magnesium Hydroxide 60 ML, diphenhydrAMINE 150 MG, Lidocaine 2% Viscous Solu... SSW SCH ×2 (08:13→11:16)
[2021-09-09] MEDS: Multivit, Therapeutic 1 TAB PO SCH (08:14)
[2021-09-09] MEDS: Nystatin 500,000 UNITS/5 ML UDCUP SSW SCH ×2 (08:14→13:05)
[2021-09-09] MEDS: Cholecalciferol 1,000 UNITS (25 MCG) TAB PO SCH (08:14)
[2021-09-09] MEDS: Pantoprazole 40 MG VIAL IVP SCH (08:20)
[2021-09-10 06:14] LABS: HSV 1 - DNA Positive (Negative); HSV 2 - DNA Negative (Negative)
== END 2021-09-09 19:55 | disposition hospice, inpatient (51) | DRG 280 ==
LOC: CSHERS 10:30 → CSHTELE 20:00 → CSHIMCU 09-05 23:55
PROVIDERS: ADMIT Family Medicine; ATTEND Family Medicine
PROC: 30233K1 Transfusion of Nonautologous Frozen Plasma into Peripheral Vein, Percutaneous Approach (ICD-10-PCS; principal; 2021-09-07)
PROC: 30233N1 Transfusion of Nonautologous Red Blood Cells into Peripheral Vein, Percutaneous Approach (ICD-10-PCS; 2021-09-07)
PROC: 30233R1 Transfusion of Nonautologous Platelets into Peripheral Vein, Percutaneous Approach (ICD-10-PCS; 2021-09-07)
PROC: 6A550Z2 Pheresis of Platelets, Single (ICD-10-PCS; 2021-09-08)
DX: I48.91 Unspecified atrial fibrillation (principal); J18.9 Pneumonia, unspecified organism; I21.A1 Myocardial infarction type 2; G93.41 Metabolic encephalopathy; N17.0 Acute kidney failure with tubular necrosis; K72.00 Acute and subacute hepatic failure without coma; G00.9 Bacterial meningitis, unspecified; B00.4 Herpesviral encephalitis; E43 Unspecified severe protein-calorie malnutrition; J90 Pleural effusion, not elsewhere classified; J98.11 Atelectasis; R58 Hemorrhage, not elsewhere classified; E16.2 Hypoglycemia, unspecified; D72.825 Bandemia; D69.6 Thrombocytopenia, unspecified; K12.1 Other forms of stomatitis; K82.9 Disease of gallbladder, unspecified; I71.4 Abdominal aortic aneurysm, without rupture; I10 Essential (primary) hypertension; I25.5 Ischemic cardiomyopathy; I25.10 Atherosclerotic heart disease of native coronary artery without angina pectoris; E78.5 Hyperlipidemia, unspecified; R53.81 Other malaise; G89.29 Other chronic pain; M54.9 Dorsalgia, unspecified; G25.81 Restless legs syndrome; I95.9 Hypotension, unspecified; E86.0 Dehydration; T50.995A Adverse effect of other drugs, medicaments and biological substances, initial encounter; R74.01 Elevation of levels of liver transaminase levels; Z96.651 Presence of right artificial knee joint; Z66 Do not resuscitate; Z20.822 Contact with and (suspected) exposure to COVID-19; Z88.6 Allergy status to analgesic agent; Z98.1 Arthrodesis status; Z91.041 Radiographic dye allergy status; Z88.5 Allergy status to narcotic agent; Z98.49 Cataract extraction status, unspecified eye; Z95.5 Presence of coronary angioplasty implant and graft; Z91.09 Other allergy status, other than to drugs and biological substances; Z88.8 Allergy status to other drugs, medicaments and biological substances; Z79.82 Long term (current) use of aspirin; Z79.899 Other long term (current) drug therapy; Z79.891 Long term (current) use of opiate analgesic; Z72.89 Other problems related to lifestyle; Z51.5 Encounter for palliative care; Z82.49 Family history of ischemic heart disease and other diseases of the circulatory system
CPT/HCPCS: 36415; 36416; 36430; 70450; 71045; 71250; 74176; 74177; 76705; 80048; 80053; 80074; 80076; 81001; 81003; 81015; 82140; 82274; 82550; 82553; 82607; 82746; 82805; 83605; 83615; 83690; 83735; 83880; 84100; 84145; 84443; 84484; 85014; 85018; 85025; 85049; 85060; 85610; 85652; 85730; 86140; 86694; 86695; 86696; 86780; 86850; 86900; 86901; 87040; 87086; 87389; 87529; 93005; 93306; 94760; 96372; C9113; J0133; J0290; J0692; J0696; J1100; J1170; J1650; J1720; J2543; J3370; J3430; J3490; J7042; J7050; J7512; J7999; P9016; P9035; P9047; P9059; Q0163; Q9967; U0003; U0005

== ENCOUNTER 2021-09-09 20:13 | Inpatient (IN) | payer OTHER ==
[2021-09-09] MEDS ORDERED: Acetaminophen 650 MG Suppository PR PRN (21:15)
[2021-09-09] MEDS ORDERED: Hyoscyamine Sulfate SL 0.125 mg Tablet SL PRN (21:15)
[2021-09-09] MEDS ORDERED: Promethazine HCl 25 MG SUPP PR PRN (21:15)
[2021-09-09] MEDS ORDERED: Haloperidol Lactate 5 MG/ML VIAL SLOW IVP PRN (21:15)
[2021-09-09] MEDS ORDERED: diphenhydrAMINE 50 MG/ML VIAL IVP PRN (21:15)
[2021-09-09] MEDS ORDERED: Ondansetron PF 4 MG/2 ML Vial IVP PRN (21:15)
[2021-09-09 21:27] VITALS: BMI 21.4
[2021-09-09] MEDS: HYDROmorphone 0.5 MG/0.5 ML SYRINGE SLOW IVP PRN (22:23)
[2021-09-10] MEDS: HYDROmorphone 0.5 MG/0.5 ML SYRINGE SLOW IVP PRN ×6 (01:01→10:53)
[2021-09-10] MEDS: HYDROmorphone 2 MG/ML VIAL SLOW IVP PRN ×6 (12:02→22:54)
[2021-09-11] MEDS: HYDROmorphone 2 MG/ML VIAL SLOW IVP PRN ×8 (02:27→15:38)
[2021-09-11] MEDS ORDERED: Midazolam HCl 2 mg/2 ml Vial ONE (12:21)
[2021-09-11] MEDS ORDERED: fentaNYL 50 mcg/hour Patch TD SCH (14:45)
[2021-09-11] MEDS: HYDROmorphone 0.5 MG/0.5 ML SYRINGE SLOW IVP PRN ×4 (17:16→23:09)
[2021-09-12] MEDS: HYDROmorphone 0.5 MG/0.5 ML SYRINGE SLOW IVP PRN ×9 (03:11→23:37)
[2021-09-12] MEDS: Lorazepam 2 MG/ML VIAL SLOW IVP PRN ×4 (09:43→21:34)
[2021-09-13] MEDS: Lorazepam 2 MG/ML VIAL SLOW IVP PRN ×6 (01:23→22:04)
[2021-09-13] MEDS: HYDROmorphone 0.5 MG/0.5 ML SYRINGE SLOW IVP PRN ×9 (03:14→11:02)
[2021-09-13] MEDS: HYDROmorphone 2 MG/ML VIAL SLOW IVP PRN ×9 (11:44→23:45)
[2021-09-14] MEDS: HYDROmorphone 2 MG/ML VIAL SLOW IVP PRN ×7 (00:46→21:29)
[2021-09-14] MEDS: Lorazepam 2 MG/ML VIAL SLOW IVP PRN ×4 (02:08→16:40)
[2021-09-14] MEDS: Scopolamine 1.5 mg/72 hour Patch TOP PRN (11:53)
[2021-09-14] MEDS ORDERED: fentaNYL 100 mcg/hour Patch TD SCH (13:00)
[2021-09-14] MEDS: fentaNYL 50 mcg/hour Patch TD SCH (14:14)
[2021-09-15] MEDS: HYDROmorphone 2 MG/ML VIAL SLOW IVP PRN ×5 (06:33→23:36)
[2021-09-15] MEDS: Lorazepam 2 MG/ML VIAL SLOW IVP PRN (14:36)
[2021-09-16] MEDS: HYDROmorphone 2 MG/ML VIAL SLOW IVP PRN ×5 (01:49→21:39)
[2021-09-17] MEDS: HYDROmorphone 2 MG/ML VIAL SLOW IVP PRN ×6 (02:54→21:45)
[2021-09-17] MEDS: fentaNYL 50 mcg/hour Patch TD SCH (13:11)
[2021-09-18] MEDS: HYDROmorphone 2 MG/ML VIAL SLOW IVP PRN ×7 (02:21→22:37)
[2021-09-18] MEDS: Lorazepam 2 MG/ML VIAL SLOW IVP PRN (03:57)
[2021-09-18] MEDS: Scopolamine 1.5 mg/72 hour Patch TOP PRN (19:47)
[2021-09-19] MEDS: HYDROmorphone 2 MG/ML VIAL SLOW IVP PRN ×7 (02:08→23:30)
[2021-09-19] MEDS: Lorazepam 2 MG/ML VIAL SLOW IVP PRN (08:41)
[2021-09-19] MEDS ORDERED: fentaNYL 100 mcg/hour Patch TD SCH (13:30)
[2021-09-20] MEDS: HYDROmorphone 2 MG/ML VIAL SLOW IVP PRN ×6 (03:31→22:47)
[2021-09-20] MEDS: Lorazepam 2 MG/ML VIAL SLOW IVP PRN (03:32)
[2021-09-20] MEDS ORDERED: fentaNYL 100 mcg/hour Patch TD SCH (13:30)
[2021-09-20] MEDS ORDERED: fentaNYL 50 mcg/hour Patch TD SCH (14:30)
[2021-09-21] MEDS: HYDROmorphone 2 MG/ML VIAL SLOW IVP PRN ×4 (04:53→17:55)
[2021-09-21] MEDS: Lorazepam 2 MG/ML VIAL SLOW IVP PRN ×4 (04:54→17:55)
[2021-09-21 11:03] VITALS: BP 110/54; TEMP 96.9
== END 2021-09-21 20:15 | disposition expired | DRG 951 ==
LOC: CSHIMCU 20:13 → CSHTELE 09-11 09:19 → CSHIMCU 09-11 09:28 → CSHTELE 09-11 16:25
PROVIDERS: ADMIT Family Medicine; ATTEND Family Medicine
DX: Z51.5 Encounter for palliative care (principal); E43 Unspecified severe protein-calorie malnutrition; B00.2 Herpesviral gingivostomatitis and pharyngotonsillitis; I25.10 Atherosclerotic heart disease of native coronary artery without angina pectoris; I48.91 Unspecified atrial fibrillation; D64.9 Anemia, unspecified; R58 Hemorrhage, not elsewhere classified; R34 Anuria and oliguria; K72.90 Hepatic failure, unspecified without coma; I71.4 Abdominal aortic aneurysm, without rupture; Z68.21 Body mass index [BMI] 21.0-21.9, adult; Z79.01 Long term (current) use of anticoagulants
CPT/HCPCS: J1170; J2060; J2250